=== PATIENT | male | born 1965 | race Two or more races ===

== ENCOUNTER 2023-11-06 11:33 | Observation (INO) | payer OTHER ==
[2023-11-06 13:15] LABS: BASO % 0.7 % (0-2.0); EOS % 5.8 % (0-4.5); HEMATOCRIT 34.9 % (35.4-49); HEMOGLOBIN 12.4 GM/dL (11.7-16.9); LYMPH % 31.2 % (8-40); MCH 28.5 pg (25.7-33.7); MCHC 35.5 g/dl (32.0-35.9); MEAN CELL VOLUME 80.3 fl (80-96); MEAN PLT VOLUME 8.8 fl (7.5-11.1); MONO % 16.2 % (3.8-10.2); NEUT % 46.1 % (42.8-82.8); PLATELET COUNT 229 10^3/uL (134-434); RBC 4.35 M/mm3 (4.00-5.60); RDW 13.4 % (11.9-15.9); WHITE BLOOD COUNT 3.8 K/mm3 (4.0-10.0)
[2023-11-06] MEDS ORDERED: CALCIUM GLUC IN NACL, ISO-OSM 1 GM/50 ML BAG IVPB ONE (13:22)
[2023-11-06] MEDS: CALCIUM GLUCONATE 10% - 1,000 MG/10 ML VIAL IVPUSH ONE (13:32)
[2023-11-06 14:15] LABS: CHLORIDE 110 mmol/L (98-107); SODIUM 138 mmol/L (136-145)
[2023-11-06 14:17] LABS: ALBUMIN 3.8 g/dl (3.4-5.0); CO2 24 mmol/L (21-32); GLUCOSE,RANDOM 71 mg/dL (74-106); MAGNESIUM 2.1 mg/dL (1.8-2.4)
[2023-11-06 14:21] LABS: CREATININE 2.3 mg/dL (0.55-1.3); PHOSPHOROUS 3.9 mg/dL (2.5-4.9); SGOT/AST 13 U/L (15-37); SGPT/ALT 21 U/L (13-61)
[2023-11-06 14:22] LABS: BILIRUBIN,TOTAL 0.6 mg/dL (0.2-1); TOT PROT 8.1 g/dl (6.4-8.2)
[2023-11-06 14:23] LABS: ALK PHOS 62 U/L (45-117); ANION GAP 4 mmol/L (4-13); POTASSIUM 6.2 mmol/L (3.5-5.1)
[2023-11-06] MEDS ORDERED: DEXTROSE 50%-WATER 25 GM/50 ML DISP.SYRIN ONE ×2 (14:49→16:25)
[2023-11-06] MEDS ORDERED: SODIUM ZIRCONIUM CYCLOSILICATE (LOKELMA) 5 GM PACKET ONE (14:49)
[2023-11-06] MEDS ORDERED: SODIUM BICARBONATE 8.4% 50 MEQ/50 ML DISP.SYRIN ONE (14:50)
[2023-11-06] MEDS ORDERED: INSULIN REGULAR HUMAN 100 UNITS/ML *VIAL ONE (14:50)
[2023-11-06] MEDS: INSULIN REGULAR HUMAN 100 UNITS/ML *VIAL IVPUSH ONE (15:31)
[2023-11-06] MEDS: SODIUM ZIRCONIUM CYCLOSILICATE (LOKELMA) 5 GM PACKET PO SCH ×2 (15:31→22:02)
[2023-11-06] MEDS: DEXTROSE 50%-WATER 25 GM/50 ML DISP.SYRIN IVPUSH ONE ×2 (15:31→16:32)
[2023-11-06] MEDS: SODIUM BICARBONATE 8.4% 50 MEQ/50 ML VIAL IVPB ONE (15:31)
[2023-11-06] MEDS: SODIUM CHLORIDE 1,000 ML IV SCH (16:02)
[2023-11-06] MEDS ORDERED: niCARdipine HCL 25 MG/10 ML AMPUL IVPB ONE (16:31)
[2023-11-06 17:29] LABS: POTASSIUM 5.3 mmol/L (3.5-5.1)
[2023-11-06 17:30] LABS: CALCIUM 9.2 mg/dL (8.5-10.1)
[2023-11-06 17:44] LABS: CREATININE 2.1 mg/dL (0.55-1.3)
[2023-11-06 18:03] VITALS: BMI 27.2
[2023-11-06] MEDS: CARVEDILOL 3.125 MG TABLET (FP) PO SCH (22:02)
[2023-11-06] MEDS: HEPARIN NA (PORCINE) 5,000 UNITS/ML 1ML VIAL SQ SCH (22:02)
[2023-11-07 09:38] LABS: URINE APPEARANCE CLEAR; URINE BILIRUBIN NEGATIVE (NEGATIVE); URINE COLOR YELLOW; URINE GLUCOSE (UA) NEGATIVE (NEGATIVE); URINE KETONE NEGATIVE (NEGATIVE); URINE LEUK ESTERASE NEGATIVE (NEGATIVE); URINE NITRITE NEGATIVE (NEGATIVE); URINE PROTEIN NEGATIVE (NEGATIVE); URINE UROBILINOGEN 0.2 mg/dL (0.2-1.0)
[2023-11-07 10:18] LABS: BASO % 0.4 % (0-2.0); EOS % 3.2 % (0-4.5); HEMATOCRIT 34.9 % (35.4-49); HEMOGLOBIN 12.3 GM/dL (11.7-16.9); LYMPH % 19.1 % (8-40); MCH 28.4 pg (25.7-33.7); MCHC 35.3 g/dl (32.0-35.9); MEAN CELL VOLUME 80.4 fl (80-96); MEAN PLT VOLUME 8.9 fl (7.5-11.1); MONO % 7.6 % (3.8-10.2); NEUT % 69.7 % (42.8-82.8); PLATELET COUNT 229 10^3/uL (134-434); RBC 4.34 M/mm3 (4.00-5.60); RDW 13.7 % (11.9-15.9); WHITE BLOOD COUNT 5.5 K/mm3 (4.0-10.0)
[2023-11-07 10:32] LABS: POTASSIUM 4.8 mmol/L (3.5-5.1)
[2023-11-07 10:34] LABS: CALCIUM 9.2 mg/dL (8.5-10.1)
[2023-11-07 10:36] LABS: BLOOD UREA NITROGEN 42.8 mg/dL (7-18)
[2023-11-07 10:38] LABS: CREATININE 1.8 mg/dL (0.55-1.3)
[2023-11-07] MEDS: SODIUM CHLORIDE 0.9% 500 ML INFUS.BAG IV ONE (11:13)
[2023-11-07] MEDS: amLODIPine BESYLATE 10 MG TABLET (FP) PO SCH (12:44)
[2023-11-07 14:45] VITALS: BP 127/95; PULSE 57; RESP 17; TEMP 98.2
== END 2023-11-07 14:37 | disposition home or self-care (01) ==
LOC: JER 11:33 → JERBED 14:41 → J4W 17:46
PROVIDERS: ADMIT Internal Medicine; ATTEND Internal Medicine
PROC: 3E033NZ Introduction of Analgesics, Hypnotics, Sedatives into Peripheral Vein, Percutaneous Approach (ICD-10-PCS; principal; 2023-11-06)
PROC: 3E033GC Introduction of Other Therapeutic Substance into Peripheral Vein, Percutaneous Approach (ICD-10-PCS; 2023-11-06)
PROC: 3E013VG Introduction of Insulin into Subcutaneous Tissue, Percutaneous Approach (ICD-10-PCS; 2023-11-06)
PROC: 3E023GC Introduction of Other Therapeutic Substance into Muscle, Percutaneous Approach (ICD-10-PCS; 2023-11-06)
PROC: 3E0337Z Introduction of Electrolytic and Water Balance Substance into Peripheral Vein, Percutaneous Approach (ICD-10-PCS; 2023-11-06)
DX: E87.5 Hyperkalemia (principal); N18.9 Chronic kidney disease, unspecified; R00.1 Bradycardia, unspecified; E27.8 Other specified disorders of adrenal gland; E89.6 Postprocedural adrenocortical (-medullary) hypofunction
CPT/HCPCS: 36415; 76775-TC; 80048; 80053; 81003; 82962; 83735; 84100; 85025; 93005; 93010; 99285-25; G0378; J1644